=== PATIENT | male | born 1950 | race Caucasian/White ===

== ENCOUNTER → 2024-03-11 06:54 | Outpatient (REF) | payer MEDICARE, OTHER, SELFPAY ==
[2024-03-11] MEDS: LEXISCAN 0.4 MG IV (08:41)
[2024-03-11] MEDS: LEXISCAN IV (08:41)
== END ==
LOC: RCS 06:54
PROVIDERS: ATTENDING PHYSICIAN Family Medicine; REFERRING PHYSICIAN Internal Medicine
DX: R07.89 Other chest pain (principal)
CPT/HCPCS: 78452; 93017; A9500; J2785

== ENCOUNTER → 2024-06-27 11:02 | Outpatient (REF) | payer MEDICARE, OTHER, SELFPAY | LOC: HWRCS 11:02 | PROVIDERS: ATTENDING PHYSICIAN Internal Medicine; FAMILY PHYSICIAN Family Medicine | DX: I25.10 Atherosclerotic heart disease of native coronary artery without angina pectoris (principal); I35.0 Nonrheumatic aortic (valve) stenosis; I35.1 Nonrheumatic aortic (valve) insufficiency | CPT/HCPCS: 93306 ==

== ENCOUNTER → 2025-05-06 10:58 | Outpatient (REF) | payer MEDICARE, OTHER, SELFPAY | LOC: HWRAD 10:58 | PROVIDERS: ATTENDING PHYSICIAN Surgery; FAMILY PHYSICIAN Family Medicine | DX: R10.24 Suprapubic pain (principal) | CPT/HCPCS: 76770 ==